=== PATIENT | female | born 1940 | race Hispanic/Latino ===

== ENCOUNTER → 2018-12-10 | Day surgery (SDC) | payer MEDICARE, OTHER ==
[2018-12-07 09:27] LABS: BASOPHILS % 0.4 % (0.0-1.0); EOSINOPHILS # (AUTO) 0.3 (0.0-0.4); EOSINOPHILS % 4.1 % (0.0-6.0); HEMATOCRIT 41.6 % (34.2-44.1); HEMOGLOBIN 13.8 g/dL (12.0-16.0); LYMPHOCYTES # (AUTO) 1.7 (1.0-3.2); LYMPHOCYTES % 24.4 % (18.0-39.1); MEAN CORPUSCULAR HEMOGLOBIN 28.8 pg (28-32); MEAN CORPUSCULAR HGB CONC 33.2 g/dL (31-35); MEAN CORPUSCULAR VOLUME 86.8 fL (81-99); MONOCYTES # (AUTO) 0.4 (0.2-0.8); MONOCYTES % 5.9 % (4.4-11.3); NEUTROPHILS # (AUTO) 4.6 (2.1-6.9); NEUTROPHILS % 65.1 % (38.7-80.0); PLATELET COUNT 235 x10e3/uL (140-360); RED BLOOD COUNT 4.79 x10e6/uL (3.6-5.1); RED CELL DISTRIBUTION WIDTH 13.1 % (11.7-14.4)
--- NOTE | 2018-12-07 09:50 | Diagnostic Imaging Report ---
EXAMINATION: PA and lateral views of the chest. COMPARISON: None CLINICAL HISTORY: Preoperative evaluation, urology surgery DISCUSSION: Lines/tubes: None. Lungs: The lungs are well inflated and clear. No pneumonia or pulmonary edema. Pleura: No pleural effusion or pneumothorax. Heart and mediastinum: The cardiomediastinal silhouette is normal. Hiatal Hernia. Bones and soft tissues: No acute bony abnormalities. IMPRESSION: No acute cardiopulmonary abnormalities. Signed by: Dr. Edwar Savage M.D. on 12/07/2018 9:46 AM
[~2018-12-10] MED LIST: ACETAMINOPHEN/CODEINE 300MG - 30MG TAB ONE; AMLODIPINE BESY10 MG PO; ASPIR 8181 MG PO; BELLADONNA/OPIUM 30 MG SUPP RC ONE; BENAZEPRIL HCL10 MG PO; BENEFIBER1 EACH PO; CALCIUM500 M1 PO; CALCIUM600 MG PEG; DEXAMETHASONE SOD PHOS INJ 4 MG/ML VIAL ONE; EPHEDRINE SULFATE INJ 50 MG/10 ML SYR ONE; FENTANYL CITRATE/PF 100MCG/2 ML INJ ONE; FEXOFENADINE HC30 MG PO; GEMFIBROZIL600 MG PO; GENTAMICIN 80MG/NS 100 ML 200 ML IV ONE; IOPAMIDOL 610MG/1ML 300 MG/ML VIAL IV ONE; LIDOCAINE HCL 2% LOCAL INJ 5 ML SDV VIAL INJ ONE; LOTREL 10-20 M1 EACH PO; OMEPRAZOLE20 MG PO; ONDANSETRON HCL INJ 2MG/ML 2ML 2 MG/ML VIAL ONE; PANTOPRAZOLE SO40 MG PO; PLAVIX75 MG PO; PROPOFOL IV EMULSION 10 MG/ML 20 ML VIAL ONE; SEVOFLURANE INHAL SOLN 250 ML PEN BTL ONE
--- OUTSIDE RECORDS SUMMARY | 2018-12-10 10:47 | XMS REPORT ---
Author Author [facility] Address Unknown Phone Unavailable Care Team Providers Care Watchmaking Teacher Name Role Phone VERONICA CALIX JIMENA Unavailable SABINO SANTOS Unavailable Unavailable GLASSSETH Fontanez Unavailable Unavailable Problems This patient has no known problems. Allergies, Adverse Reactions, Alerts This patient has no known allergies or adverse reactions. Medications This patient has no known medications. Encounters Start Date/Time End Date/Time Encounter Type Admission Type Attending [facility] Care Department Encounter ID 2017-10-19 12:50:00 2017-10-19 12:50:00 Outpatient [facility] [id number] Results Test Description Test Time Test Comments Text Results Atomic Results Result Comments CHEST 2 VIEWS 2018-12-07 09:46:00 [place] [address] Patient Name: JODIE KAUFMAN MR #: [id number] : 1940 Age/Sex: 78/F Req #: [id number] Adm Physician: Ordered by: SABINO SANTOS MD Report #: [id number] Location: OR Room/Bed: Procedure: [id number] DX/CHEST 2 VIEWS Exam Date: 12/07/18 Exam Time: 0920 REPORT STATUS: Signed EXAMINATION: PA and lateral views of the chest. COMPARISON: None CLINICAL HISTORY: Preoperative evaluation, urology surgery DISCUSSION: Lines/tubes: None. Lungs: The lungs are well inflated and clear. No pneumonia or pulmonary edema. Pleura: No pleural effusion or pneumothorax. Heart and mediastinum: The cardiomediastinal silhouette is normal. Hiatal Hernia. Bones and soft tissues: No acute bony abnormalities. IMPRESSION: No acute cardiopulmonary abnormalities. Signed by: Dr. Royal Pantoja M.D. on 12/07/2018 9:46 AM Dictated By: ROYAL PANTOJA MD 5 Transcribed By: COLLEEN on 12/07/18945 COPY TO: SABINO SANTOS MD US BREAST COMPLETE-RIGHT 2017-10-19 15:06:21 [facility] W/CAD, US BREAST COMPLETE-LEFT, US BREASTCOMPLETE-JUECXS93.0: UNSPECIFIED LUMP IN UNSPECIFIED BREAST.Dictation Location: [id number] Information: 77-year-old female presents for annual evaluation.Patient is status post left breast surgery for fibrocystic disease.Technique: Bilateral digital mammogram with computer assisted diagnosis. Bilateral CC, MLO, XCCL, ML projections as well as left CC and ML spotcompression views were obtained. Comparison: Prior mammograms dating back to 12/26/2013Findings: The breasts are heterogeneously dense, which may obscure small masses.Bilateral partially obscured masses or noted bilaterally. The previouslynoted masses in the upper outer left breast appears smaller compared tothe prior exam. Scar markers were placed on both breasts, overlying postsurgical changes. There is a biopsy clip in the lower inner rightbreast. There are no suspicious microcalcifications.Bilateral breast ultrasound:Subsequent bilateral breast ultrasound was performed utilizing a highfrequency linear array transducer. All 4 quadrants, axilla, andretroareolar of the both breasts were evaluated.Right breast:- 6:00, 1 cm from the nipple, previously noted finding is no longeridentified- 9:00, 5 cm from the nipple, 3 x 4 x 4 mm simple cystLeft breast:- 3:00, 3 cm from the nipple, 12 x 13 x 11 mm complicated cyst, smallercompared to the prior exam- 3:00, 2 cm from nipple, cluster of subcentimeter simple cysts- 5:00, 1 cm from the nipple, previously noted finding no longeridentified- 12:00, 4 cm from the nipple, previously noted finding no longeridentified- 1:00, 3 cm from the nipple, previously noted finding no longeridentified- 1:00, 2 cm from the nipple, 13 x 12 x 13 mm complicated cyst, smallercompared to the prior exam- 6:00, retroareolar, dilated ducts with debrisIMPRESSION: 1. Partially obscured masses seen mammographically correspond to simpleand complicated cysts as described above.A follow-up bilateral mammogram and bilateral breast ultrasound isrecommended in one year to ensure stability.The patient was informed of the findings and recommendations at the timeof the examination.ACR BI-RADS CATEGORY: 2-BENIGN RECOMMENDATION: FOLLOW UP BILATERAL MAMMOGRAM AND BILATERAL BREASTULTRASOUND IN ONE YEAR. US BREAST COMPLETE-LEFT 2017-10-19 15:06:21 [facility] W/CAD, US BREAST COMPLETE-LEFT, US BREASTCOMPLETE-CSQBJJ32.0: UNSPECIFIED LUMP IN UNSPECIFIED BREAST.Dictation Location: [id number] Information: 77-year-old female presents for annual evaluation.Patient is status post left breast surgery for fibrocystic disease.Technique: Bilateral digital mammogram with computer assisted diagnosis. Bilateral CC, MLO, XCCL, ML projections as well as left CC and ML spotcompression views were obtained. Comparison: Prior mammograms dating back to 12/26/2013Findings: The breasts are heterogeneously dense, which may obscure small masses.Bilateral partially obscured masses or noted bilaterally. The previouslynoted masses in the upper outer left breast appears smaller compared tothe prior exam. Scar markers were placed on both breasts, overlying postsurgical changes. There is a biopsy clip in the lower inner rightbreast. There are no suspicious microcalcifications.Bilateral breast ultrasound:Subsequent bilateral breast ultrasound was performed utilizing a highfrequency linear array transducer. All 4 quadrants, axilla, andretroareolar of the both breasts were evaluated.Right breast:- 6:00, 1 cm from the nipple, previously noted finding is no longeridentified- 9:00, 5 cm from the nipple, 3 x 4 x 4 mm simple cystLeft breast:- 3:00, 3 cm from the nipple, 12 x 13 x 11 mm complicated cyst, smallercompared to the prior exam- 3:00, 2 cm from nipple, cluster of subcentimeter simple cysts- 5:00, 1 cm from the nipple, previously noted finding no longeridentified- 12:00, 4 cm from the nipple, previously noted finding no longeridentified- 1:00, 3 cm from the nipple, previously noted finding no longeridentified- 1:00, 2 cm from the nipple, 13 x 12 x 13 mm complicated cyst, smallercompared to the prior exam- 6:00, retroareolar, dilated ducts with debrisIMPRESSION: 1. Partially obscured masses seen mammographically correspond to simpleand complicated cysts as described above.A follow-up bilateral mammogram and bilateral breast ultrasound isrecommended in one year to ensure stability.The patient was informed of the findings and recommendations at the timeof the examination.ACR BI-RADS CATEGORY: 2-BENIGN RECOMMENDATION: FOLLOW UP BILATERAL MAMMOGRAM AND BILATERAL BREASTULTRASOUND IN ONE YEAR. [facility] W/CAD 2017-10-19 15:06:21 [facility] W/CAD, US BREAST COMPLETE-LEFT, US BREASTCOMPLETE-[id number]: UNSPECIFIED LUMP IN UNSPECIFIED BREAST.Dictation Location: [id number] Information: 77-year-old female presents for annual evaluation.Patient is status post left breast surgery for fibrocystic disease.Technique: Bilateral digital mammogram with computer assisted diagnosis. Bilateral CC, MLO, XCCL, ML projections as well as left CC and ML spotcompression views were obtained. Comparison: Prior mammograms dating back to 12/26/2013Findings: The breasts are heterogeneously dense, which may obscure small masses.Bilateral partially obscured masses or noted bilaterally. The previouslynoted masses in the upper outer left breast appears smaller compared tothe prior exam. Scar markers were placed on both breasts, overlying postsurgical changes. There is a biopsy clip in the lower inner rightbreast. There are no suspicious microcalcifications.Bilateral breast ultrasound:Subsequent bilateral breast ultrasound was performed utilizing a highfrequency linear array transducer. All 4 quadrants, axilla, andretroareolar of the both breasts were evaluated.Right breast:- 6:00, 1 cm from the nipple, previously noted finding is no longeridentified- 9:00, 5 cm from the nipple, 3 x 4 x 4 mm simple cystLeft breast:- 3:00, 3 cm from the nipple, 12 x 13 x 11 mm complicated cyst, smallercompared to the prior exam- 3:00, 2 cm from nipple, cluster of subcentimeter simple cysts- 5:00, 1 cm from the nipple, previously noted finding no longeridentified- 12:00, 4 cm from the nipple, previously noted finding no longeridentified- 1:00, 3 cm from the nipple, previously noted finding no longeridentified- 1:00, 2 cm from the nipple, 13 x 12 x 13 mm complicated cyst, smallercompared to the prior exam- 6:00, retroareolar, dilated ducts with debrisIMPRESSION: 1. Partially obscured masses seen mammographically correspond to simpleand complicated cysts as described above.A follow-up bilateral mammogram and bilateral breast ultrasound isrecommended in one year to ensure stability.The patient was informed of the findings and recommendations at the timeof the examination.ACR BI-RADS CATEGORY: 2-BENIGN RECOMMENDATION: FOLLOW UP BILATERAL MAMMOGRAM AND BILATERAL BREASTULTRASOUND IN ONE YEAR. MRI SPINE LUMBAR WO [place] [address] Patient Name: JODIE KAUFMAN MR #: [id number] : 1940 Age/Sex: 76/F Req #: [id number] Adm Physician: Ordered by: SETH GLASS MD Report #: [id number] Location: MRI Room/Bed: Procedure: [id number] MRI/MRI SPINE LUMBAR WO Exam Date: 08/18/17 Exam Time: 0948 REPORT STATUS: Signed EXAMINATION: MRI of the lumbar spine without contrast HISTORY: Low back pain radiating mainly to the left lower extremity with numbness and with contrast COMPARISON: None. TECHNIQUE: Sagittal T1, T2, STIR; axial T2 and proton density. FINDINGS: It is assumed that there are 5 lumbar vertebrae. Curvature/Alignment: Normal lordosis. Vertebrae: No evidence of recent fracture, infection, or neoplasm. Conus: Normal, terminating at T12-L1 Cauda equina: Unremarkable. Lower thoracic: Unremarkable. Paraspinal soft tissues: Partially visualized distended urinary bladder with trabeculation/thickening and possible diverticulation of the wall. Mild to moderate paraspinal musculature atrophy in the lumbosacral region mainly on the left at L4-5 due to prior surgery. Degenerative changes: L1-L2: Unremarkable. L2-L3: Mild symmetric disc and facet arthrosis. No significant canal or foraminal stenoses L3-L4: Mild asymmetric to the right disc bulge, ligamenta flava thickening and facet arthrosis. Mild to moderate spinal canal stenosis.. L4-L5: Prominent facet arthrosis with minimal anterolisthesis and prominent narrowing of the l ateral recesses mainly on the left, with displacement of the traversing L5 nerve roots mainly on the left. No significant foraminal stenosis. Left- sided laminectomy defect. L5-S1: Minimal symmetric disc and mild facet arthrosis. Mild narrowing of the lateral recesses IMPRESSION: 1. Minimal degenerative anterolisthesis at L4-5. 2. Prominent narrowing of the lateral recesses at L4-5 due to facet arthrosis with displacement of the left greater than right traversing L5 nerve roots. 3. Left-sided laminectomy at L4-5, no residual/recurrent disc herniations . 4. Partially visualized prominent distention and thickening of the urinary bladder, correlate with past medical history of possible neurogenic bladder. Signed by: Dr. Chantal Yost M.D. on 08/18/2017 10:48 AM Dictated By: CHANTAL YOST MD 104 Transcribed By: COLLEEN on 08/18/171047 COPY TO: SETH GLASS MD
[2018-12-10 19:45] VITALS: BP 148/72
--- NOTE | 2019-01-17 08:48 | Operative Report ---
DATE OF PROCEDURE: 12/10/2018 SURGEON: Ankush Allen MD PREOPERATIVE DIAGNOSIS: Urinary tract infections. POSTOPERATIVE DIAGNOSES: 1. Urinary tract infections. 2. Severe urethral stenosis. 3. Grade 2 rectocele. 4. Atrophic (senile) vaginitis. OPERATION PERFORMED: 1. Cystourethroscopy with calibration and dilation of severe urethral stricture ( performed for the diagnosis of urethral stenosis). 2. Cystourethroscopy with bilateral ureteral catheterization and retrograde ureteropyelography ( performed for the urinary tract infections). 3. Interpretation of retrograde ureteropyelography. 4. Pelvic examination under anesthesia. ANESTHESIA: General. COMPLICATIONS: None. CLINICAL SUMMARY: Destiny Lund is a 78-year-old woman with recurrent urinary tract infections. She was brought for evaluation. She is aware of risks of bleeding, infection, injury to the adjacent structures, and need for additional procedures, and elected to proceed. PROCEDURE IN DETAIL: Informed consent was verified. Destiny Lund was preoperatively identified, taken to the operating room, and placed on the cystoscopy table in supine position. Anesthesia was uneventfully begun. The patient was then carefully and gently repositioned in dorsal lithotomy position with all pressure points well padded. Her genitalia were prepped and draped in usual sterile fashion. A 22.5-Emirati cystoscope sheath with obturator in place could not be placed into the patient's urethra. The urethra was calibrated to only 12-Emirati in size and progressively dilated to 30-Emirati in size. We then catheterized the bladder and obtained urinary retention of 1400 cc. This is prior to and without performing any hydrodistention. The cystoscope sheath was then atraumatically inserted in the patient's urethra. Panendoscopy of the urinary bladder revealed no suspicious mucosal lesions. There were no tumors, no stones. There were trabeculations noted throughout and the patient's bladder was definitely stretched out and very floppy. There were no tumors and there were no stones. An 8-Emirati catheter was used to cannulate each ureter and retrograde ureteropyelograms were performed. Interpretation Of Retrograde Ureteropyelography: Contrast was instilled in a retrograde fashion bilaterally. There were no tumors, no stones, and no diverticula. Unobstructed drainage was observed bilaterally fluoroscopically. It should be noted that the bladder was opacified and it appeared to be huge. The patient's bladder was then drained and cystoscope was withdrawn. Urine culture was sent from the bladder. There was some whitish debris noted within the urine. Pelvic examination under anesthesia revealed a grade 2 rectocele and atrophic (senile) vaginitis. No abnormal palpable pelvic masses could be appreciated. There were no obvious mucosal lesions. The patient was prescribed Macrobid and Diflucan as well as pain medicines and was instructed to follow up for urodynamic study. Ankush MD Alejandro OH/MODL /[id number] cc: Nehemiah Gonzalez MD
== END | disposition home or self-care (01) ==
LOC: OR 10:45
PROVIDERS: ATTEND Urology
DX: N39.0 Urinary tract infection, site not specified (principal); N35.92 Unspecified urethral stricture, female; N32.89 Other specified disorders of bladder; N81.6 Rectocele; N95.2 Postmenopausal atrophic vaginitis; M54.9 Dorsalgia, unspecified; I10 Essential (primary) hypertension; K21.9 Gastro-esophageal reflux disease without esophagitis; Z88.1 Allergy status to other antibiotic agents; Z88.0 Allergy status to penicillin; Z88.2 Allergy status to sulfonamides; Z01.810 Encounter for preprocedural cardiovascular examination; Z01.812 Encounter for preprocedural laboratory examination; Z01.818 Encounter for other preprocedural examination; Z79.82 Long term (current) use of aspirin; Z86.73 Personal history of transient ischemic attack (TIA), and cerebral infarction without residual deficits
CPT/HCPCS: 36415; 52281; 71046; 74420; 85025; 87086; 93005; C1758; J1100; J1580; J2001; J2405; J2704; Q9967

== ENCOUNTER → 2019-01-17 | Outpatient (CLI) | payer MEDICARE, OTHER ==
[~2019-01-17] MED LIST changes: -ACETAMINOPHEN/CODEINE 300MG - 30MG TAB ONE; -BELLADONNA/OPIUM 30 MG SUPP RC ONE; -DEXAMETHASONE SOD PHOS INJ 4 MG/ML VIAL ONE; -EPHEDRINE SULFATE INJ 50 MG/10 ML SYR ONE; -FENTANYL CITRATE/PF 100MCG/2 ML INJ ONE; -GENTAMICIN 80MG/NS 100 ML 200 ML IV ONE; -IOPAMIDOL 610MG/1ML 300 MG/ML VIAL IV ONE; -LIDOCAINE HCL 2% LOCAL INJ 5 ML SDV VIAL INJ ONE; -ONDANSETRON HCL INJ 2MG/ML 2ML 2 MG/ML VIAL ONE; -PROPOFOL IV EMULSION 10 MG/ML 20 ML VIAL ONE; -SEVOFLURANE INHAL SOLN 250 ML PEN BTL ONE
--- NOTE | 2019-01-17 16:28 | Diagnostic Imaging Report ---
Thoracic Spine - 3 view(s) HISTORY: Pain, upper back COMPARISON: Chest radiograph December 07, 2017. FINDINGS: Superimposed structures and attenuation partially limit bone detail. Mild right convex curvature. No displaced fracture or compression deformity is identified. Mild multilevel degenerative disc changes. Other: Atherosclerotic vascular calcifications at the aortic arch. IMPRESSION: 1. No acute radiographic abnormality. 2. Mild multilevel degenerative disc changes. Signed by: Dr. Mane Collins D.O., M.M.M. on 01/17/2019 4:24 PM
== END ==
LOC: RAD 15:18
DX: M54.6 Pain in thoracic spine (principal)
CPT/HCPCS: 72070

== ENCOUNTER → 2019-07-14 | Outpatient (CLI) | payer MEDICARE, OTHER ==
--- NOTE | 2019-07-14 16:18 | Diagnostic Imaging Report ---
EXAM: US RENAL RETROPERITONEAL COMP DATE: 07/14/2019 12:30 PM INDICATION: Disorder of the urinary system COMPARISON: None TECHNIQUE: Transverse and longitudinal leiva scale and color doppler sonographic images of the upper abdomen were obtained. FINDINGS: RIGHT KIDNEY: 12.7 cm Echogenicity: Normal Collecting System: No hydronephrosis Stones: None Cyst/Mass: None LEFT KIDNEY: 13.1 cm Echogenicity: Normal Collecting System: No hydronephrosis Stones: None Cyst/Mass: In the inferior pole, a 1.7 x 1.5 x 1.7 cm exophytic anechoic lesion is noted most compatible with a cyst. FREE FLUID: None Bladder: Within normal limits IMPRESSION: 1. Small left renal cyst, otherwise, unremarkable renal ultrasound. Signed by: Dr. Ata Rothman MD on 07/14/2019 4:14 PM
--- NOTE | 2019-07-14 16:21 | Diagnostic Imaging Report ---
Exam: KUB Clinical history: Disorder of the urinary system Findings: There is no evidence of radiopaque stones overlying the region of the bilateral renal shadows. Subcentimeter calcifications are noted in bilateral pelvic region likely represent phleboliths. There is nonobstructive bowel gas pattern. Regional osseous structures are unremarkable. Impression: 1. No radiographic evidence of nephrolithiasis. Signed by: Dr. Ata Rothman MD on 07/14/2019 4:18 PM
== END ==
LOC: US 12:23
PROVIDERS: ATTEND Urology
DX: N39.0 Urinary tract infection, site not specified (principal)
CPT/HCPCS: 74018; 76770

== ENCOUNTER → 2020-03-27 | Outpatient (CLI) | payer MEDICARE, OTHER | LOC: RAD 08:40 | DX: M79.89 Other specified soft tissue disorders (principal) | CPT/HCPCS: 93971 ==

== ENCOUNTER → 2020-07-16 | Day surgery (SDC) | payer MEDICARE, OTHER ==
[2020-07-11 09:10] LABS: BASOPHILS % 0.4 % (0.0-1.0); EOSINOPHILS # (AUTO) 0.3 (0.0-0.4); EOSINOPHILS % 4.2 % (0.0-6.0); HEMOGLOBIN 13.3 g/dL (12.0-16.0); LYMPHOCYTES # (AUTO) 1.7 (1.0-3.2); LYMPHOCYTES % 22.4 % (18.0-39.1); MEAN CORPUSCULAR HEMOGLOBIN 28.2 pg (28-32); MEAN CORPUSCULAR HGB CONC 32.4 g/dL (31-35); MEAN CORPUSCULAR VOLUME 86.9 fL (81-99); MONOCYTES # (AUTO) 0.5 (0.2-0.8); MONOCYTES % 6.4 % (4.4-11.3); NEUTROPHILS % 66.3 % (38.7-80.0); PLATELET COUNT 257 x10e3/uL (140-360); RED BLOOD COUNT 4.72 x10e6/uL (3.6-5.1); RED CELL DISTRIBUTION WIDTH 13.5 % (11.7-14.4)
[~2020-07-16] MED LIST changes: -CALCIUM600 MG PEG; +CALCIUM600 MG PO; +EPHEDRINE SULFATE INJ 50 MG/ML VIAL ONE; +FENTANYL CITRATE/PF 100MCG/2 ML INJ ONE; +GABAPENTIN100 MG PO; +GLUCAGON FOR INJ 1 MG VIAL ONE; +HYOSCYAMINE 0.125 MG TAB ONE; +LIDOCAINE HCL 2% LOCAL INJ 5 ML SDV VIAL INJ ONE; +MIDAZOLAM HCL 2 MG/2 ML VIAL ONE; +PROPOFOL IV EMULSION 10 MG/ML 20 ML VIAL ONE; +SUPER B-50 COM1 EACH PO; +TRIMETHOPRIM100 MG PO
[2020-07-16 10:30] VITALS: BP 135/74
--- NOTE | 2020-07-16 14:19 | Operative Report ---
DATE OF PROCEDURE: 07/16/2020 SURGEON: Dane Gonzalez MD PROCEDURES: EGD with polypectomy and biopsies and colonoscopy with polypectomy and biopsies. INDICATIONS FOR EGD: Acid reflux, bloating. INDICATIONS FOR COLONOSCOPY: Surveillance colonoscopy, personal history of colon polyps, diarrhea. MEDICATIONS: The patient was done under MAC, please see anesthesiologist's note. PROCEDURE IN DETAIL: With the patient in the left lateral decubitus position, a flexible fiberoptic Olympus gastroscope was introduced into the esophagus under direct visualization without any difficulty. There was some patchy erythema noted in distal esophagus. The scope was then advanced with ease into the stomach traversing an approximately 5 cm size hiatal hernia. Mucosa overlying the antrum and the body revealed some patchy erythema and cobu-py-zyhvideh edema, and biopsies were obtained and sent to stain for H. pylori. An approximately 5 mm pedunculated polyp was removed per snare electrocautery from the distal body along the greater curvature. Also, some hyperplastic-appearing polyps were partially excised with the cold biopsy forceps from the body of the stomach. Pylorus was of normal contour and shape, was intubated with ease and the scope was advanced all the way to the second portion of the duodenum. The scope was then withdrawn slowly and biopsies were obtained from the proximal second portion and the duodenal bulb to rule out sprue. The scope was then withdrawn back into the stomach and retroflexed, and previously described hiatal hernia was also noted in the retroflexed position. The scope was then straightened out, it was subsequently withdrawn, and the patient tolerated the procedure well. IMPRESSION: 1. Distal esophagitis, mild. 2. Large hiatal hernia. 3. Gastritis, biopsied, biopsies sent to stain for Helicobacter pylori. 4. Gastric polyps, one hot snared in the distal body and some partially excised with the cold biopsy forceps. 5. Rule out sprue. PLAN: Follow up histology. Continue Protonix 40 mg one p.o. before meals b.i.d. Initiate Carafate 1 g p.o. before meals t.i.d. and at bedtime. The patient was then turned around and after adequate lubrication of the anal canal, a flexible fiberoptic Olympus colonoscope was inserted into the rectum with ease and advanced all the way to the cecum. There was some retained fecal material noted in the colon, but visualization was fair. Diverticular disease was noted throughout the colon. The ileocecal valve was intubated and the scope was advanced into the terminal ileum. Biopsies were obtained. The scope was then withdrawn back into the colon. It was then withdrawn slowly and whatever was visualized the mucosa overlying the cecum, ascending colon, and transverse colon other than for diverticulosis appeared to be within normal limits. A minute polyp was removed per hot biopsy forceps from the descending colon. The sigmoid other than for diverticular disease grossly appeared to be within normal limits. The scope was then retroflexed into the distal rectum and small internal hemorrhoids were noted, none of which was actively bleeding. The scope was then straightened out and it was subsequently withdrawn after securing an adequate stool specimen that was sent for the appropriate stool studies. The patient tolerated the procedure well. IMPRESSION: 1. Pandiverticulosis. 2. Descending colon polyp removed per hot biopsy forceps. 3. Internal hemorrhoids, none actively bleeding. PLAN: Follow up histology. Follow up stool studies. Start Align one p.o. b.i.d. MD NATALIA Spivey/HILTON /[id number] cc: Santosh Gonzalez MD
[2020-07-16 15:12] LABS: C DIFFICILE TOXIN A&B AMP PROB NEGATIVE (NEGATIVE); WBC,FECAL (FECAL LACTOFERRIN) NEGATIVE (NEGATIVE)
== END | disposition home or self-care (01) ==
LOC: OR 05:59
PROVIDERS: ATTEND Internal Medicine Gastroenterology
DX: R19.7 Diarrhea, unspecified (principal); K63.5 Polyp of colon; K31.7 Polyp of stomach and duodenum; K29.70 Gastritis, unspecified, without bleeding; K21.0 Gastro-esophageal reflux disease with esophagitis; K59.00 Constipation, unspecified; K44.9 Diaphragmatic hernia without obstruction or gangrene; K62.89 Other specified diseases of anus and rectum; K57.30 Diverticulosis of large intestine without perforation or abscess without bleeding; K64.8 Other hemorrhoids; I10 Essential (primary) hypertension; E78.5 Hyperlipidemia, unspecified; M54.9 Dorsalgia, unspecified; Z88.0 Allergy status to penicillin; Z88.2 Allergy status to sulfonamides; Z01.810 Encounter for preprocedural cardiovascular examination; Z01.812 Encounter for preprocedural laboratory examination; Z11.59 Encounter for screening for other viral diseases; Z79.82 Long term (current) use of aspirin; Z86.73 Personal history of transient ischemic attack (TIA), and cerebral infarction without residual deficits; Z80.0 Family history of malignant neoplasm of digestive organs
CPT/HCPCS: 36415; 43239; 45380; 45384; 83630; 83993; 85025; 87045; 87177; 87328; 87493; 88305; 88312; 93005; J1610; J2001; J2250; J2704; J3010; U0002; 43251; 45378

== ENCOUNTER → 2023-05-18 | Outpatient (CLI) | payer MEDICARE, OTHER ==
[~2023-05-18] MED LIST changes: -EPHEDRINE SULFATE INJ 50 MG/ML VIAL ONE; -FENTANYL CITRATE/PF 100MCG/2 ML INJ ONE; -GLUCAGON FOR INJ 1 MG VIAL ONE; -HYOSCYAMINE 0.125 MG TAB ONE; -LIDOCAINE HCL 2% LOCAL INJ 5 ML SDV VIAL INJ ONE; -MIDAZOLAM HCL 2 MG/2 ML VIAL ONE; -PROPOFOL IV EMULSION 10 MG/ML 20 ML VIAL ONE
== END ==
LOC: MAMMO 10:02
PROVIDERS: ATTEND Internal Medicine
DX: Z12.31 Encounter for screening mammogram for malignant neoplasm of breast (principal); M81.8 Other osteoporosis without current pathological fracture
CPT/HCPCS: 77067; 77080

== ENCOUNTER → 2024-04-08 | Outpatient (REF) | payer MEDICARE, OTHER | LOC: MRI 09:25 | PROVIDERS: ATTEND Internal Medicine | DX: M25.562 Pain in left knee (principal) ==

== ENCOUNTER 2024-05-20 09:00 | Outpatient (RCR) | payer MEDICARE, OTHER | END 2024-05-22 | LOC: PT 09:00 | PROVIDERS: ATTEND Specialist | DX: M25.562 Pain in left knee (principal); M17.12 Unilateral primary osteoarthritis, left knee; M62.81 Muscle weakness (generalized); M25.662 Stiffness of left knee, not elsewhere classified ==

== ENCOUNTER 2024-06-15 09:00 | Outpatient (RCR) | payer MEDICARE, OTHER | END 2024-06-22 | LOC: PT 09:00 | PROVIDERS: ATTEND Specialist | DX: M17.12 Unilateral primary osteoarthritis, left knee (principal); M25.562 Pain in left knee; M62.81 Muscle weakness (generalized) ==

== ENCOUNTER 2024-06-24 09:41 | Outpatient (RCR) | payer MEDICARE, OTHER | END 2024-07-23 | LOC: PT 09:41 | PROVIDERS: ATTEND Specialist | DX: M17.12 Unilateral primary osteoarthritis, left knee (principal); M62.81 Muscle weakness (generalized); M25.562 Pain in left knee ==